=== PATIENT | female | born 1965 | race Caucasian/White ===

== ENCOUNTER 2018-11-02 06:21 | Day surgery (SDC) | payer OTHER ==
[2018-11-02] MEDS ORDERED: FENTAnyl 50 MCG/ML VIAL (08:27)
[2018-11-02] MEDS ORDERED: MIDAZOLAM 1 MG/ML 2 ML INJ ×2 (08:27)
== END 2018-11-02 12:32 | disposition home or self-care (01) ==
LOC: GIL 06:21
DX: Z12.11 Encounter for screening for malignant neoplasm of colon (principal); K29.30 Chronic superficial gastritis without bleeding; D12.8 Benign neoplasm of rectum
CPT/HCPCS: 43239; 84703; 88305

== ENCOUNTER 2019-06-15 06:58 | Day surgery (SDC) | payer OTHER ==
[2019-06-15] MEDS ORDERED: SOD CHLORIDE 0.9% 1,000 ML IV (07:00)
[2019-06-15] MEDS ORDERED: CEFAZOLIN 2 GM/50 ML (PMX) 50 ML IVPB (07:00)
[2019-06-15] MEDS ORDERED: MIDAZOLAM 1 MG/ML 2 ML INJ (10:43)
[2019-06-15] MEDS ORDERED: KETAMINE (50 MG/ML) 10 ML VIAL (10:44)
[2019-06-15] MEDS: BUPIVACAINE 0.5% (SDV) 30 ML INJ (11:17)
[2019-06-15] MEDS: LIDOCAINE 2% (MDV) 20 ML INJ (11:17)
[2019-06-15] MEDS: BUPIVACAINE 0.25% (MPF) 30 ML INJ (11:17)
[2019-06-15] MEDS ORDERED: HYDROCODONE/APAP (5/325) TAB PO (11:30)
== END 2019-06-15 12:30 | disposition home or self-care (01) ==
LOC: SDS 06:58
DX: D17.21 Benign lipomatous neoplasm of skin and subcutaneous tissue of right arm (principal); R94.31 Abnormal electrocardiogram [ECG] [EKG]
CPT/HCPCS: 14021; 71045; 88307; 93005